=== PATIENT | male | born 1955 | race Caucasian/White ===

== ENCOUNTER 2022-12-19 10:58 | Outpatient (CLI) | payer BC, SELFPAY ==
--- NOTE | ~2022-12-19 | XR_ITS ---
Clinical Indication: Cough PA and lateral views of the chest: Comparison: 03/22/2011 Findings: The lungs are clear, without evidence of focal consolidation or pleural effusion. Cardiome diastinal silhouette is within normal limits. Bones and soft tissues are unremarkable. Impression: Normal chest. Reviewed, dictated and finalized at location . Impression: Normal chest.
== END 2022-12-19 10:59 | disposition home or self-care (01) ==
PROVIDERS: PCP Family Medicine; Visit Provider Family Medicine
DX: R05.9 Cough, unspecified (principal)
CPT/HCPCS: 71046

== ENCOUNTER 2024-07-01 02:04 | Day surgery (SDC) | payer OTHER, SELFPAY ==
[2024-06-16 15:54] VITALS: BMI 36.3
--- OUTSIDE RECORDS SUMMARY | 2024-07-01 02:09 | XMS_ITS | Clinical Summary ---
Author Organization [facility] Address [address] [place] [address] Care Team Providers Care Network Coordinator Name Role Phone Giovanni Jarquin MD Primary Care Provider Allergies Active Allergy Reactions Criticality Noted Date Comments Penicillins Rash Medium 12/09/2017 Medications aspirin 81 mg tablet Take 1 tablet (81 mg total) by mouth daily Active losartan (COZAAR) 100 mg tablet 8 Active amLODIPine (NORVASC) 5 mg tablet Take 1 tablet (5 mg total) by mouth daily 4 Active rosuvastatin (CRESTOR) 5 mg tablet Take 1 tablet (5 mg total) by mouth daily 4 Active albuterol HFA (PROVENTIL HFA,VENTOLIN HFA,PROAIR HFA) 90 mcg/actuation inhaler INHALE 1 PUFF BY MOUTH EVERY 4 HOURS NEEDED FOR SHORTNESS OF BREATH OR WHEEZING 4 Active Active Problems Problem Noted Date Diagnosed Date MARLIN (obstructive sleep apnea) 05/16/2018 Essential hypertension 02/20/2018 Snores 02/20/2018 Class 1 obesity due to exces s calories without serious comorbidity with body mass index (BMI) of 34.0 to 34.9 in adult 02/20/2018 Asymmetric SNHL (sensorineural hearing loss) Surgical History Surgery Date Site/Laterality Comments ANTERIOR CRUCIATE LIGAMENT REPAIR 05/27/1993 - 4 Medical History Medical History Date Comments H/O seasonal allergies Asthma Arm fracture HTN (hypertension) Family History Medical History Relation Name Comments Colon cancer Father Prostate cancer Father Hearing loss Mother Relation Name Status Comments Father Mother Alive Social History Tobacco Use Types Packs/Day Years Used Date Smoking Tobacco: Never Smokeless Tobacco: Never Tobacco Cessation:Counseling Given: Not Answered Alcohol Use Standard Drinks/Week Comments Yes 0 (1 standard drink = 0.6 oz pur e alcohol) Personal Safety Answer Date Recorded Getting School Help Needed Not on file 06/02 Sex and Gender Information Value Date Recorded Sex Assigned at Not on file Legal Sex Male 10:51 AM CDT Gender Identity Not on file Sexual Orientation Not on file Obstetrics History Last Filed Vital Signs Vital Sign Reading Time Taken Comments Blood Pressure 134/73 10/29/2023 8:42 AM CDT Pulse 56 10/29/2023 8:42 AM CDT Temperature 36.8 ??C (98.2 ??F) 10/29/2023 8:42 AM CD T Respiratory Rate - - Oxygen Saturation 98% 10/29/2023 8:42 AM CDT Inhaled Oxygen Concentration - - Weight 119.5 kg (263 lb 8 oz) 10/29/2023 8:42 AM CDT Height 180.3 cm (5' 11 ) 10/29/2023 8:42 AM CDT Body Mass Index 36.75 10/29/2023 8:42 AM CDT Plan of Treatment Health Maintenance Due Date Last Done Comments Colon Cancer Screening-Colonoscopy 1955 Depression Screening 1956 Fall Risk Assessment 1955 Hepatitis C Screening 1956 Prostate Cancer Screening-PSA 1956 DTaP/Tdap/Td Vaccine (1 - Tdap) 1967 Hepatitis B Screening 1974 Zoster Vaccine (1 of 2) 2006 Pneumococcal vaccine 65+ (1 of 1 - PCV) 2021 Well Visit 65+ 2021 Influenza Vaccine (#1) 2024 8, 04/10/2015, 03/30/2013, Additional history exists Insurance [facility] CHOICE PLUS [facility] Care Teams Network Coordinator Relationship Specialty Start Date End Date Giovanni Jarquin MD [address] [place] [address] PCP - General Family Medicine 11/19/17
--- OUTSIDE RECORDS SUMMARY | 2024-07-01 02:09 | XMS_ITS | Referral Summary ---
Author Organization [facility] Address [address] [place] [address] Care Team Providers Care Agricultural Produce Washer Name Role Phone Giovanni Jarquin MD Primary [...] adult 02/20/2018 Asymmetric SNHL (sensorineural hearing loss) Social History Tobacco Use Types Packs/Day Years [...] on file Sexual Orientation Not on file Last Filed Vital Signs Vital Sign Reading [...] 10/29/2023 8:42 AM CDT Plan of Treatment Not on file Insurance [facility] CHOICE PLUS [facility] Care Teams Agricultural Produce Washer Relationship Specialty Start Date End Date Giovanni Jarquin MD [address] [place] [address] PCP - General Family Medicine 11/19/17
[2024-07-01 07:11] VITALS: BP 145/78; PULSE 68; RESP 18; TEMP 36.3; O2SAT 100; BMI 36.0
[2024-07-01] MEDS: LACTATED RINGERS 1,000 ML 150 ML IV CONT (07:15)
--- NOTE | 2024-07-01 07:50 | P.PNAN_ITS ---
Anes - Initial Pre Proc Eval Procedure: Operation Date: 07/01/24 08:30 Proposed Procedures p Colonoscopy - Alberto Marley MD Date/Time: 07/01/24 07:50 Surgeon: Alberto Marley MD Pre Op Diagnosis: family hx of cancer Patient Data Age: 69 Gender: M Height: 1.8 m Weight: 117.3 kg Last Vital Signs Temp 36.3 C L 07/01/24 07:11 Pulse 68 07/01/24 07:11 Resp 18 07/01/24 07:11 BP 145/78 H 07/01/24 07:11 Pulse Ox 100 07/01/24 07:11 O2 Del Method Room Air 07/01/24 07:11 Allergies Allergy/AdvReac Type Severity Reaction Status Date / Time Penicillins Allergy Mild Rash Verified 07/01/24 07:09 Home Medications ?Medication ?Instructions ?Recorded ?Confirmed ?Type epinephrine 0.3 mg/0.3 mL 0.3 mg (0.3 mL) IM ONCE #2 ea 08/13/22 06/16/24 Rx injection syringe albuterol sulfate 90 mcg/actuation 1 inh inhalation Q4H PRN shortness 12/27/23 06/16/24 Rx aerosol inhaler of breath or wheezing #8.5 grams aspirin 81 mg capsule 81 mg PO DAILY 06/16/24 07/01/24 History losartan 100 mg tablet 100 mg PO DAILY #90 tabs 06/17/24 07/01/24 Rx rosuvastatin 5 mg tablet (Crestor) 5 mg PO DAILY #90 tabs 06/17/24 07/01/24 Rx amlodipine 10 mg tablet See Rx Instructions .Route 06/22/24 07/01/24 Rx .COMPLEX #90 tabs Patient hx anesthesia problems: none Family hx anesthesia problems: none Results Review: All pre-operative results and documents have been reviewed as part of the pre- operative evaluation. [facility] Past Medical History Medical History Obesity Family history of colon cancer HTN (hypertension), benign MARLIN (obstructive sleep apnea) Pure hypercholesterolemia Family History Family History Father Carcinoma of colon, Onset Age: 93 Malignant neoplasm of prostate, Onset Age: 93 Social History Social History Social History: Smoking status: Never smoker Second hand tobacco smoke exposure: No Alcohol intake: current Drinks per week: 1 Alcohol use details: glass of wine Substance use: never Substance use type: does not use Do You Feel Safe in your Home?: Yes Lack of Transportation: No Lack of Food: Never True Current Housing: I Have Housing Concerned About Future Housing: No Difficulty Paying Gas/Electric Bills: No Difficulty Paying for Meds: No Currently Unemployed: No Education: Don't Know Difficulty w/ Childcare or Family Care: No Living arrangements: with family Occupation/Education: occupation Gender identity (if verbalized by the patient): Male Sexual Orientation (if Verbalized by the Patient): Straight or Heterosexual Anes - Eval Final PreProcedure Day of Procedure 07/01/24 07:50 Patient weight: obese Heart: regular rate and rhythm Lungs: clear to auscultation Airway: Mallampati scale class II Neurological: alert and oriented Last oral intake: >/= 8 hours ASA classification: III Emergent: no Anesthetic plan: proceed Anesthesia type and monitoring: general GIVS and standard monitoring Results Review: All pre-operative results and documents have been reviewed as part of the pre- operative evaluation. Informed Consent: The patient's anesthetic plan and its attendant risks and benefits were discussed with the patient/family/POA. Questions were solicited and answers provided to the satisfaction of the patient/family/POA.
--- NOTE | 2024-07-01 08:09 | PM.HPGS ---
History of Present Illness History of Present Illness Consent: Risks, benefits, and alternatives have been discussed and questions answered. Patient agrees to proceed with procedure. Chief complaint: family hx of cancer Narrative: Theodore Anders is a 69 year old male with last colonoscopy 2013, father had colon cancer Review of Systems Review of Systems: All systems reviewed & are unremarkable except as noted in HPI and below PMFSH Past Medical History Medical History Obesity Family history of colon cancer HTN (hypertension), benign MARLIN (obstructive sleep apnea) Pure hypercholesterolemia Family History Family History Father Carcinoma of colon, Onset Age: 93 Malignant neoplasm of prostate, Onset Age: 93 Social History Social History Social History: Smoking status: Never smoker Second hand tobacco smoke exposure: No Alcohol intake: current Drinks per week: 1 Alcohol use details: glass of wine Substance use: never Substance use type: does not use Do You Feel Safe in your Home?: Yes Lack of Transportation: No Lack of Food: Never True Current Housing: I Have Housing Concerned About Future Housing: No Difficulty Paying Gas/Electric Bills: No Difficulty Paying for Meds: No Currently Unemployed: No Education: Don't Know Difficulty w/ Childcare or Family Care: No Living arrangements: with family Occupation/Education: occupation Gender identity (if verbalized by the patient): Male Sexual Orientation (if Verbalized by the Patient): Straight or Heterosexual Meds Home Medications and Allergies Home Medications ?Medication ?Instructions ?Recorded ?Confirmed ?Type epinephrine 0.3 mg/0.3 mL 0.3 mg (0.3 mL) IM ONCE #2 ea 08/13/22 06/16/24 Rx injection syringe albuterol sulfate 90 mcg/actuation 1 inh inhalation Q4H PRN shortness 12/27/23 06/16/24 Rx aerosol inhaler of breath or wheezing #8.5 grams aspirin 81 mg capsule 81 mg PO DAILY 06/16/24 07/01/24 History losartan 100 mg tablet 100 mg PO DAILY #90 tabs 06/17/24 07/01/24 Rx rosuvastatin 5 mg tablet (Crestor) 5 mg PO DAILY #90 tabs 06/17/24 07/01/24 Rx amlodipine 10 mg tablet See Rx Instructions .Route 06/22/24 07/01/24 Rx .COMPLEX #90 tabs Allergies Allergy/AdvReac Type Severity Reaction Status Date / Time Penicillins Allergy Mild Rash Verified 07/01/24 07:09 Vital Signs Vital Signs - 24 hr 07/01/24 07:11 Temperature 97.4 F L Pulse Rate 68 Respiratory Rate 18 Blood Pressure 145/78 H Pulse Oximetry 100 Oxygen Delivery Room Air Exam Const: General: comfortable and no acute distress HENMT: Face/Nose/Sinus: Normal nares present Eyes: General: appearance normal, both eyes and all related structures Neck: Neck: no JVD Resp: Auscultation: clear to auscultation bilaterally Cardio: Rate: regular rate Rhythm: regular rhythm GI: Inspection: non-distended GI Palp: Yes Soft to palpation Skin: General skin exam: normal color Neuro: Speech: normal speech Extrem: General: normal to inspection Psych: Mental Status: mental status grossly normal Assessment and Plan Assessment and plan (1) Family history of colon cancer: Code(s): Z80.0 - Family history of malignant neoplasm of digestive organs Status: Acute Assessment and Plan: colonoscopy
[2024-07-01 08:23] VITALS: BP 92/61; PULSE 63; RESP 15; O2SAT 99
[2024-07-01 08:33] VITALS: BP 99/63; PULSE 74; RESP 15; O2SAT 95
[2024-07-01 08:43] VITALS: BP 111/64; PULSE 72; RESP 20; O2SAT 95
--- NOTE | 2024-07-01 08:50 | SUR.PHASEII ---
Ambar Almanza CRNA notified me that the patient was sinus to bigeminy during the procedure. Patient was having ectopic beats in post op so I notified NACHO Villalta. She assessed heart rhythm strips and notified Dr. Washington. Dr. Washington assessed the patient and believes this rhythm is due to an electrolyte imbalance from the prep. He is okay for discharge at this time due to rhythm being sinus with PAC's. Patient is having no symptoms.
== END 2024-07-01 08:57 | disposition home or self-care (01) ==
PROVIDERS: PCP Family Medicine; Referring Provider Family Medicine; Visit Provider Internal Medicine Gastroenterology
PROC: 0DJD8ZZ Inspection of Lower Intestinal Tract, Via Natural or Artificial Opening Endoscopic (ICD-10-PCS; CPT 45378; principal; 2024-07-01 08:30)
DX: Z12.11 Encounter for screening for malignant neoplasm of colon (principal); K64.8 Other hemorrhoids; K57.30 Diverticulosis of large intestine without perforation or abscess without bleeding; I10 Essential (primary) hypertension; E78.00 Pure hypercholesterolemia, unspecified; G47.33 Obstructive sleep apnea (adult) (pediatric); E66.9 Obesity, unspecified; Z68.36 Body mass index [BMI] 36.0-36.9, adult; Z79.51 Long term (current) use of inhaled steroids; Z79.82 Long term (current) use of aspirin; Z80.42 Family history of malignant neoplasm of prostate; Z80.0 Family history of malignant neoplasm of digestive organs
CPT/HCPCS: 45378; J2003; J2704; J7120